=== PATIENT | male | born 1990 | race Caucasian/White ===

== ENCOUNTER 2016-07-08 19:04 | Emergency (ER) | payer SELFPAY ==
[2016-07-08 19:12] VITALS: RESP 16; O2SAT 97
--- NOTE | 2016-07-08 19:16 | EDPHY ---
H & P Stated Complaint: intermittent dysuria x 5-6 days Time Seen by Provider: 07/08/16 19:15 - Personal History Current Tetanus/Diphtheria Vaccine: Unsure Current Tetanus Diphtheria and Acellular Pertussis (TDAP): Unsure - Medical/Surgical History Hx Asthma: No Hx Chronic Respiratory Disease: No Hx Diabetes: No Hx Cardiac Disease: No Hx Renal Disease: No Hx Cirrhosis: No Hx Alcoholism: No Hx HIV/AIDS: No Hx Splenectomy or Spleen Trauma: No Other PMH: ASD REPAIR - Social History Smoking Status: Current every day smoker Constitutional: Initial Vital Signs Temperature (C) 37.2 C 07/08/16 19:10 Heart Rate 91 07/08/16 19:10 Respiratory Rate 16 07/08/16 19:10 Blood Pressure 138/94 H 07/08/16 19:10 O2 Sat (%) 97 07/08/16 19:10 O2 Delivery Mode Room Air Allergies/Adverse Reactions: No Known Allergies Allergy (Verified 07/08/16 19:09) Home Medications: Medication Instructions Recorded Hyoscyamine Sulfate 0.125 mg SL QID #10 tab.subl 07/08/16 Phenazopyridine HCl [Pyridium] 200 mg PO TID #6 tab 07/08/16 Medical Decision Making ED Course/Re-evaluation: CHIEF COMPLAINT: Dysuria HISTORY OF PRESENT ILLNESS: The patient is a 25 y/o male complaining of intermittent and worsening dysuria over the last 5-6 days. He denies penile discharge and reports no recent sexual activity. He has no abdominal pain, fever , back pain, vomiting, or other symptoms. He denies pertinent medical history. REVIEW OF SYSTEMS: A 10 point review of systems was performed and is negative with the exception of the elements mentioned in the history of present illness. PHYSICAL EXAM: HR, BP, O2 Sat, RR. Temp noted General Appearance: Alert, well hydrated, appropriate, and non-toxic appearing. Malodorous and disheveled. Head: Atraumatic without scalp tenderness or obvious injury Eyes: Pupils equal, round, reactive to light and accommodation, EOMI, no trauma , no injection. Nose: Atraumatic, no rhinorrhea, clear. Neck: Supple, nontender. Respiratory: No retractions, no distress, and no accessory muscle use. Cardiovascular: Regular rate and rhythm, no murmurs, rubs, or gallops. Good capillary refill all extremities. Gastrointestinal: Abdomen is soft, nontender, non-distended, no masses, no rebound, no guarding, no peritoneal signs. Musculoskeletal: Normal active ROM of all extremities, atraumatic. Neurological: Alert, appropriate, and interactive. Nonfocal neuro exam. Skin: No rashes, good turgor, no nodules on palpation. Past medical history: Denies Past surgical history: Denies Family history: Noncontributory Social history: From [place]. Single. Not currently sexually active. DIFFERENTIAL DIAGNOSIS: The differential diagnosis for the patient's dysuria included but was not limited to poor hygiene, urinary tract infection, STD, viral syndrome. MEDICAL DECISION MAKING: This is a 25 y/o male who presents with a 6-day history of dysuria. He denies other associated symptoms and is afebrile here. UA was unremarkable. Patient will be discharged on hyoscyamine with referral to urologist for follow up if he has persistent symptoms. He is comfortable with this plan. Return precautions given. - Data Points Laboratory Results: 07/08/16 07/08/16 19:15 19:15 Urine Color YELLOW Urine Appearance HAZY Urine pH 7.0 (5.0-7.5) Ur Specific [place] 1.026 (1.002-1.030) Urine Protein NEGATIVE (NEGATIVE) Urine Ketones NEGATIVE (NEGATIVE) Urine Blood NEGATIVE (NEGATIVE) Urine Nitrate NEGATIVE (NEGATIVE) Urine Bilirubin NEGATIVE (NEGATIVE) Urine Urobilinogen 2.0 EU H EU (0.2-1.0) Ur Leukocyte Esterase NEGATIVE (NEGATIVE) Ur Culture Indicated? NOT INDICATED (NI) Urine Glucose NEGATIVE (NEGATIVE) C.trachomatis RNA (TMA) Pending N.gonorrhoeae RNA (TMA) Pending Medications Given: Discontinued Medications Phenazopyridine HCl (Pyridium) 200 mg PO EDNOW ONE Stop: 07/08/16 20:04 Last Admin: 07/08/16 20:13 Dose: Not Given Departure - Departure Disposition: Home, Routine, Self-Care Clinical Impression: Dysuria Condition: Good Instructions: Dysuria (ED) Additional Instructions: 1. Take hyoscyamine as prescribed for painful urination. 2. Follow up with a urologist next week for unimproved symptoms. Referrals: NONE *PRIMARY CARE P,. [Primary Care Provider] - As per Instructions Richard Barger MD [Medical Doctor] - As per Instructions Prescriptions: Hyoscyamine Sulfate 0.125 mg SL QID #10 tab.subl Phenazopyridine HCl [Pyridium] 200 mg PO TID #6 tab Report Scribed for: Singh Finney Report Scribed by: Tawanna Case Date of Report: 07/08/16 Time of Report: 19:53
[2016-07-08 19:56] LABS: COLOR YELLOW; LEUKOCYTE ESTERASE,URINE NEGATIVE (NEGATIVE); NITRITE,URINE NEGATIVE (NEGATIVE)
[2016-07-08] MEDS ORDERED: PHENAZOPYRIDINE HCL 200 MG TAB PO ONE (20:03)
[2016-07-08 20:28] VITALS: BP 132/62; PULSE 84; TEMP 98.8
[2016-07-09 12:48] LABS: CHLAMYDIA AMPLIFICATION GENPRB NEGATIVE (NEGATIVE)
== END 2016-07-08 20:28 | disposition home or self-care (01) ==
DX: R30.0 Dysuria (principal); F17.200 Nicotine dependence, unspecified, uncomplicated

== ENCOUNTER 2016-11-09 15:17 | Emergency (ER) | payer SELFPAY ==
[2016-11-09 15:23] VITALS: TEMP 98.1
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
[2016-11-09 16:54] VITALS: RESP 20; O2SAT 99
[2016-11-09 17:19] LABS: COLOR YELLOW; LEUKOCYTE ESTERASE,URINE NEGATIVE (NEGATIVE); NITRITE,URINE NEGATIVE (NEGATIVE)
[2016-11-09 17:20] LABS: MUCUS TRACE /lpf (NONE-1+)
[2016-11-09 17:28] LABS: RBC,URINE 0-1 /hpf (0-3)
[2016-11-09 17:54] VITALS: BP 137/95; PULSE 70
== END 2016-11-09 17:54 | disposition home or self-care (01) ==
DX: S30.22XA Contusion of scrotum and testes, initial encounter (principal); F17.200 Nicotine dependence, unspecified, uncomplicated; W50.0XXA Accidental hit or strike by another person, initial encounter

== ENCOUNTER 2017-06-29 11:49 | Emergency (ER) | payer SELFPAY ==
[2017-06-29] MEDS ORDERED: DIAZEPAM 5 MG/ML 1 ML SYR IVP ONE (13:19)
[2017-06-29] MEDS ORDERED: NS 1,000 ML IV ONE ×2 (13:19→14:40)
--- NOTE | 2017-06-29 13:30 | EDPHY ---
General Time Seen by Provider: 06/29/17 13:22 Narrative: CHIEF COMPLAINT: Back pain HISTORY OF PRESENT ILLNESS: Patient complains of left-sided back pain. This started abruptly 2 days ago. This happened when standing up from a bent over position. It is all on the left side. It does move from thoracic to lumbar times. There is no trauma to the back. No midline tenderness. No weakness, numbness or tingling. No incontinence of bowel or bladder. No retention of bowel or bladder. He does not use any IV drugs. No fever. No systemic complaints of illness. He says he has had this in the past, but typically resolved after 30 min. It is not resolved despite Tylenol and ibuprofen. He has never been formally evaluated for this. No chest pain or shortness of breath. No other associated complaints or modifying factors. REVIEW OF SYSTEMS: Ten systems reviewed and are negative unless otherwise noted in the HPI PCP: None SPECIALISTS: None PAST MEDICAL HISTORY: Denies any medical diagnoses PAST SURGICAL HISTORY: No surgical history SOCIAL HISTORY: Daily smoker. Occasional alcohol use. Denies any drug use. Works a rn medicare. Lives in [place] FAMILY HISTORY: Noncontributory EXAMINATION General Appearance: Alert, no distress, leaning to his left Head: normocephalic, atraumatic Eyes: Pupils equal and round, no conjunctival pallor or injection ENT, Mouth: Mucous membranes moist Neck: Normal inspection, supple, non-tender. No meningeal signs Respiratory: Lungs are clear to auscultation. No wheezing, rhonchi or crackles Cardiovascular: Regular rate and rhythm. No murmur Back: Leaning to his left lateral position. There is visible muscle spasm to the left thoracic soft tissues. There is no midline tenderness at any level of spine. There is no fluctuance to the spinous processes. No crepitus or deformity. Neurological: GCS 15. A&O, nonfocal, strength is symmetric in the extremities x4. Patellar reflexes are symmetric. No footdrop. Skin: Warm and dry, no rash. No petechiae or purpura Extremities: Nontender, no pedal edema Psychiatric: Mood and affect normal DIFFERENTIAL DIAGNOSES: Including but not limited to muscular strain, sprain, disc bulge, disc herniation, neurapraxia, acute cord compression MDM: 1:20 p.m. Acute left thoracic back pain with no midline tenderness at any level. No evidence of acute cord compression or cauda equina. He does have visible spasms on examination. He appears to be in discomfort but he is in no acute distress and vital signs were well within normal limits. IV was placed prior to my examination of the patient. I have ordered electrolyte studies, IV fluid , muscle relaxant by IV. Do not feel he warrants MRI or imaging at this time. 1:55 p.m. Electrolytes and CK are within normal limits. 2:35 p.m. Notified by RN that the patient has had no relief from the IV Valium. He is provided a urine sample that is very cloudy and concentrated. I have ordered urinalysis for this. Also ordered IV Decadron and a 2nd L of IV fluid. 2:55 p.m. Urinalysis thus far unremarkable. I have discussed the case with Dr. Cárdenas including that the patient has had no relief from our medications. He recommends a CBC and IV pain medications. I have ordered these and will re- evaluate the patient. 3:40 p.m. I have re-evaluated the patient. At this time he reports that he is feeling better. He has not resolved but feels much better. He is asking to be discharged home. I do feel he is stable to do so. He has no midline tenderness. He has no neuro complaints of any kind. We discussed the likelihood of muscular strain versus is pinched nerve. I do not feel the patient has any evidence of acute cord compression or cauda equina. He is ambulatory without difficulty at this time. We discussed discharge home with symptomatic medications. We discussed ED precautions. We discussed follow up with primary care physician, and I will provide the on-call information for him. He is comfortable this plan and discharged home stable condition. SUPERVISION: This patient was independently evaluated without direct involvement of or examination by the attending physician. - History Smoking Status: Current every day smoker - Objective Vital Signs: Initial Vital Signs Temperature (C) 98.2 F 06/29/17 11:59 Heart Rate 87 06/29/17 11:59 Respiratory Rate 18 06/29/17 11:59 Blood Pressure 135/84 H 06/29/17 11:59 O2 Sat (%) 96 06/29/17 11:59 O2 Delivery Mode Room Air Allergies/Adverse Reactions: No Known Allergies Allergy (Verified 06/29/17 11:59) Home Medications: Medication Instructions Recorded Cyclobenzaprine [Flexeril 10 MG 10 mg PO TID PRN #9 tab 06/29/17 (*)] oxyCODONE HCL/ACETAMINOPHEN 1 each PO Q4-6PRN PRN #7 tablet 06/29/17 [Percocet 5-325 mg Tablet] predniSONE [Deltasone] 60 mg PO DAILY #12 tablet 06/29/17 Laboratory Results: Laboratory Results 06/29/17 12:30 06/29/17 12:30 06/29/17 06/29/17 06/29/17 14:40 12:30 12:30 WBC 7.21 10^3/uL 10^3/uL (3.80-9.50) RBC 5.33 10^6/uL 10^6/uL (4.40-6.38) Hgb 16.7 g/dL g/dL (13.7-17.5) Hct 47.5 % % (40.0-51.0) MCV 89.1 fL fL (81.5-99.8) MCH 31.3 pg pg (27.9-34.1) MCHC 35.2 g/dL g/dL (32.4-36.7) RDW 12.7 % % (11.5-15.2) Plt Count 256 10^3/uL 10^3/uL (150-400) MPV 9.4 fL fL (8.7-11.7) Neut % (Auto) 69.6 % % (39.3-74.2) Lymph % (Auto) 20.4 % % (15.0-45.0) [place] % (Auto) 5.7 % % (4.5-13.0) Eos % (Auto) 3.1 % % (0.6-7.6) Baso % (Auto) 0.8 % % (0.3-1.7) Nucleat RBC Rel Count 0.0 % % (0.0-0.2) Absolute Neuts (auto) 5.02 10^3/uL 10^3/uL (1.70-6.50) Absolute Lymphs (auto) 1.47 10^3/uL 10^3/uL (1.00-3.00) Absolute Monos (auto) 0.41 10^3/uL 10^3/uL (0.30-0.80) Absolute Eos (auto) 0.22 10^3/uL 10^3/uL (0.03-0.40) Absolute Basos (auto) 0.06 10^3/uL 10^3/uL (0.02-0.10) Absolute Nucleated RBC 0.00 10^3/uL 10^3/uL (0-0.01) Immature Gran % 0.4 % % (0.0-1.1) Immature Gran # 0.03 10^3/uL 10^3/uL (0.00-0.10) Sodium 144 mEq/L mEq/L (135-145) Potassium 4.0 mEq/L mEq/L (3.5-5.2) Chloride 103 mEq/L mEq/L (97-110) Carbon Dioxide 29 mEq/l mEq/l (22-31) Anion Gap 12 mEq/L mEq/L (8-16) BUN 11 mg/dL mg/dL (7-23) Creatinine 0.7 mg/dL mg/dL (0.7-1.3) Estimated GFR > 60 Glucose 78 mg/dL mg/dL (70-100) Calcium 9.4 mg/dL mg/dL (8.5-10.4) Creatine Kinase 101 IU/L IU/L (0-224) Urine Color YELLOW Urine Appearance MODERATELY TURBID Urine pH 7.0 (5.0-7.5) Ur Specific [place] 1.018 (1.002-1.030) Urine Protein NEGATIVE (NEGATIVE) Urine Ketones NEGATIVE (NEGATIVE) Urine Blood NEGATIVE (NEGATIVE) Urine Nitrate NEGATIVE (NEGATIVE) Urine Bilirubin NEGATIVE (NEGATIVE) Urine Urobilinogen NEGATIVE EU EU (0.2-1.0) Ur Leukocyte Esterase NEGATIVE (NEGATIVE) Urine RBC 1-3 /hpf /hpf (0-3) Urine WBC 1-3 /hpf /hpf (0-3) Ur Epithelial Cells NONE SEEN /lpf /lpf (NONE-1+) Urine Bacteria TRACE /hpf H /hpf (NONE SEEN) Urine Mucus 2+ /lpf H /lpf (NONE-1+) Urine Glucose NEGATIVE (NEGATIVE) Medications Given: Discontinued Medications Dexamethasone (Decadron Injection) 10 mg IVP EDNOW ONE Stop: 06/29/17 14:40 Last Admin: 06/29/17 14:41 Dose: 10 mg Diazepam (Valium) 5 mg IVP EDNOW ONE Stop: 06/29/17 13:20 Last Admin: 06/29/17 13:37 Dose: 5 mg Sodium Chloride (Ns) 1,000 mls @ 0 mls/hr IV EDNOW ONE; Wide Open PRN Reason: Protocol Stop: 06/29/17 13:20 Last Admin: 06/29/17 13:36 Dose: 1,000 mls Sodium Chloride (Ns) 1,000 mls @ 0 mls/hr IV EDNOW ONE; Wide Open PRN Reason: Protocol Stop: 06/29/17 14:41 Last Admin: 06/29/17 14:41 Dose: 1,000 mls Morphine Sulfate (Morphine) 4 mg IVP EDNOW ONE Stop: 06/29/17 14:55 Last Admin: 06/29/17 15:09 Dose: 4 mg Departure - Departure Disposition: Home, Routine, Self-Care Clinical Impression: Spasm of back muscles Acute thoracic back pain Qualifiers: Back pain laterality: left Qualified Code(s): M54.6 - Pain in thoracic spine Condition: Good Instructions: Muscle Spasm (ED), Thoracic Back Strain (ED) Additional Instructions: 1. Prescription medication as provided as needed 2. Ibuprofen 400 mg every 6 hr as needed for the next 5-7 days 2. Contact [facility] or the on-call primary care physician as provided for outpatient evaluation 3. ED precautions for worsening pain, difficulty ambulating, midline tenderness or pain, numbness, tingling or weakness, difficulty urinating or performing bowel movement Referrals: [facility],. [Clinic] - As per Instructions Itz Berrios MD [place] - As per Instructions Stand Alone Forms: Work Excuse Prescriptions: Cyclobenzaprine [Flexeril 10 MG (*)] 10 mg PO TID PRN #9 tab PRN Reason: Spasms oxyCODONE HCL/ACETAMINOPHEN [Percocet 5-325 mg Tablet] 1 each PO Q4-6PRN PRN #7 tablet PRN Reason: Pain, Breakthrough predniSONE [Deltasone] 60 mg PO DAILY #12 tablet
[2017-06-29 13:32] LABS: CREATINE KINASE 101 IU/L (0-224)
[2017-06-29] MEDS ORDERED: DEXAMETHASONE 10 MG/ML VIAL IVP ONE (14:39)
[2017-06-29] MEDS ORDERED: DEXAMETHASONE 10 MG/ML VIAL ONE (14:39)
[2017-06-29 15:12] LABS: PLATELET COUNT 256 10^3/uL (150-400)
[2017-06-29 16:07] VITALS: BP 154/94
== END 2017-06-29 16:11 | disposition home or self-care (01) ==
DX: M62.830 Muscle spasm of back (principal); F17.200 Nicotine dependence, unspecified, uncomplicated; E86.9 Volume depletion, unspecified
CPT/HCPCS: 96374; J1100; J2270; J3360

== ENCOUNTER 2018-05-04 19:46 | Emergency (ER) | payer OTHER ==
[2018-05-04 20:06] VITALS: BP 158/90
--- NOTE | 2018-05-04 20:07 | EDPHY ---
H & P Stated Complaint: CAN'T GET AN ERECTION X 1 MONTH, LAST EVENT 40 MIN AGO Time Seen by Provider: 05/04/18 20:01 - Personal History Current Tetanus Diphtheria and Acellular Pertussis (TDAP): Unsure - Medical/Surgical History Hx Asthma: No Hx Chronic Respiratory Disease: No Hx Diabetes: No Hx Cardiac Disease: No Hx Renal Disease: No Hx Cirrhosis: No Hx Alcoholism: No Hx HIV/AIDS: No Hx Splenectomy or Spleen Trauma: No Other PMH: ASD REPAIR - Social History Smoking Status: Heavy smoker Constitutional: Initial Vital Signs Temperature (C) 37.0 C 05/04/18 20:03 Heart Rate 105 H 05/04/18 20:03 Respiratory Rate 16 05/04/18 20:03 Blood Pressure 158/90 H 05/04/18 20:03 O2 Sat (%) 97 05/04/18 20:03 O2 Delivery Mode Room Air Allergies/Adverse Reactions: No Known Allergies Allergy (Verified 06/29/17 11:59) Home Medications: Medication Instructions Recorded Sildenafil Citrate [Viagra] 100 mg PO DAILY PRN #7 tablet 05/04/18 Medical Decision Making ED Course/Re-evaluation: CHIEF COMPLAINT: Can't get an erection HISTORY OF PRESENT ILLNESS: The patient is a 27 y/o male complaining that he can't get an erection for the last month. He reports that every day for the last month he has been unable to get an erection. He used to think it was "because he wasn't man-like". He denies using illicit drugs or alcohol as he is on probation. He denies taking Benadryl or Nyquil. No fever, headache, chest pain, shortness of breath, abdominal pain, urinary or bowel complaints, numbness, paresthesias. REVIEW OF SYSTEMS: A 10 point review of systems was performed and is negative with the exception of the elements mentioned in the history of present illness. PHYSICAL EXAM: HR, BP, O2 Sat, RR. Temp noted General Appearance: Alert, well hydrated, appropriate, and non-toxic appearing. Head: Atraumatic without scalp tenderness or obvious injury Eyes: Pupils equal, round, reactive to light and accommodation, EOMI, no trauma , no injection. Ears: Clear bilaterally, no perforation, normal landmarks Nose: Atraumatic, no rhinorrhea, clear. Throat: There is no erythema or exudates, no lesions, normal tonsils, mucus membranes moist. Neck: Supple, 2+ carotid upstroke, nontender, no lymphadenopathy. Respiratory: No retractions, no distress, no wheezes, and no accessory muscle use. Lungs are clear to auscultation bilaterally. Cardiovascular: Regular rate and rhythm, no murmurs, rubs, or gallops. Bilateral carotid, radial, dorsalis pedis, and posterior tibial pulses intact. Good capillary refill all extremities. Gastrointestinal: Abdomen is soft, nontender, non-distended, no masses, no rebound, no guarding, no peritoneal signs. Musculoskeletal: Normal active ROM of all extremities, atraumatic. Neurological: Alert, appropriate, and interactive. The patient has normal DTRs and non-focal cranial nerves, motor, sensory, and cerebellar exam. Skin: No rashes, good turgor, no nodules on palpation. Past medical history: Denies Past surgical history: ASD Repair Family history: Denies Social history: Lives in [place], single, employed DIAGNOSTICS/PROCEDURES/CRITICAL CARE TIME: Not indicated. DIFFERENTIAL DIAGNOSIS: The differential diagnosis for the patient's erectile dysfunction included but was not limited to erectile dysfunction, epididymitis, orchitis, referred pain from kidney stone, inguinal hernia, and torsion of the testicle. MEDICAL DECISION MAKING: The patient is a 27 y/o male stating that he can't get an erection for the last month. He has a normal physical exam. I have advised him to follow up with a urologist and take Viagra as prescribed. Return precautions provided; patient is comfortable with this plan. Departure - Departure Disposition: Home, Routine, Self-Care Clinical Impression: Erectile dysfunction Qualifiers: Erectile dysfunction type: due to other cause Qualified Code(s): N52.8 - Other male erectile dysfunction Condition: Good Additional Instructions: 1. Take Viagra as prescribed. 2. Follow-up with a urologist. 3. Return to the Emergency Department for fever, worsening pain, flank pain or failure to improve within 72 hours. Referrals: Phillip Nguyen MD [Medical Doctor] - As per Instructions Prescriptions: Sildenafil Citrate [Viagra] 100 mg PO DAILY PRN #7 tablet PRN Reason: erectile dysfunction Report Scribed for: Singh Finney Report Scribed by: Shey N Clemenson Date of Report: 05/04/18 Time of Report: 20:31
== END 2018-05-04 20:44 | disposition home or self-care (01) ==
DX: N52.8 Other male erectile dysfunction (principal)

== ENCOUNTER 2018-06-08 14:54 | Emergency (ER) | payer OTHER ==
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
[2018-06-08 15:53] VITALS: BP 135/74
[2018-06-08] MEDS ORDERED: TDAP ADULT 0.5 ML INJ (BOOSTRIX) IM ONE (16:04)
== END 2018-06-08 16:05 | disposition home or self-care (01) ==
LOC: EDUNIT#
DX: S09.90XA Unspecified injury of head, initial encounter (principal); S80.212A Abrasion, left knee, initial encounter; S60.311A Abrasion of right thumb, initial encounter; F17.200 Nicotine dependence, unspecified, uncomplicated; V49.49XA Driver injured in collision with other motor vehicles in traffic accident, initial encounter; Y92.410 Unspecified street and highway as the place of occurrence of the external cause; Y99.9 Unspecified external cause status; Y93.9 Activity, unspecified